=== PATIENT | male | born 1960 | race Caucasian/White ===

== ENCOUNTER 2018-07-20 08:13 | Emergency (ER) | payer SELFPAY ==
[~2018-07-20] VITALS: Ht 182.9 cm; Wt 91.0 kg
[2018-07-20] MEDS ORDERED: FAMOTIDINE 20 MG TABLET ONE (08:46)
[2018-07-20] MEDS ORDERED: METOCLOPRAMIDE 5 MG/ML, 2ML ONE (08:46)
[2018-07-20] MEDS ORDERED: FAMOTIDINE 20 MG/2 ML ONE (08:47)
[2018-07-20] MEDS ORDERED: MORPHINE SULFATE 4 MG/ML, 1ML ONE (08:47)
[2018-07-20] MEDS ORDERED: FAMOTIDINE 20 MG/2 ML IVP ONE (09:00)
[2018-07-20] MEDS ORDERED: MORPHINE SULFATE 4 MG/ML, 1ML IVPush PRN (09:00)
[2018-07-20] MEDS ORDERED: SODIUM CHLORIDE 0.9% 1,000ML IVBOLUS ONE (09:00)
[2018-07-20] MEDS ORDERED: METOCLOPRAMIDE 5 MG/ML, 2ML IVPush ONE (09:00)
[2018-07-20 09:06] LABS: BASOPHILS % (AUTO) 0 % (0-1); EOSINOPHILS # (AUTO) 0.01 x10^3/uL (0-0.4); EOSINOPHILS % (AUTO) 0 % (1-7); LYMPHOCYTES # (AUTO) 0.83 x10^3/uL (1-3.4); LYMPHOCYTES % (AUTO) 8 % (22-44); MD NO; MEAN CORPUSCULAR HEMOGLOBIN 33.9 pg (27.5-34.5); MEAN CORPUSCULAR HGB CONC 34.8 g/dL (33.2-36.2); MEAN CORPUSCULAR VOLUME 97.4 fL (81-97); MEAN PLATELET VOLUME 7.5 fL (7.4-10.4); MONOCYTES # (AUTO) 0.82 x10^3/uL (0.2-0.8); MONOCYTES % (AUTO) 8 % (2-9); NEUTROPHILS # (AUTO) 9.13 x10^3/uL (1.8-6.8); NEUTROPHILS % (AUTO) 85 % (42-75); PLATELET COUNT 340 x10^3/uL (130-400); RED BLOOD COUNT 4.57 x10^6/uL (4.38-5.82); RED CELL DISTRIBUTION WIDTH 13.1 % (9.4-14.8)
[2018-07-20 09:16] LABS: ALBUMIN 3.9 g/dL (3.4-5.0); ANION GAP 10 mmol/L (5-15); CALCIUM 8.5 mg/dL (8.5-10.1); CHLORIDE 96 mmol/L (98-107)
[2018-07-20 09:21] LABS: ALANINE AMINOTRANSFERASE 23 U/L (12-78); ALKALINE PHOSPHATASE 102 U/L (45-117); BILIRUBIN,TOTAL 0.5 mg/dL (0.2-1.0); CREATININE 0.99 mg/dL (0.7-1.3); TOTAL PROTEIN 7.5 g/dL (6.4-8.2)
[2018-07-20] MEDS ORDERED: MAALOX/HYOSCYAMINE/LIDOCAINE 45 ML BTL ONE (09:44)
[2018-07-20] MEDS ORDERED: ONDANSETRON ODT 8 MG ONE (09:58)
[2018-07-20] MEDS ORDERED: MAALOX/HYOSCYAMINE/LIDOCAINE 45 ML BTL PO ONE (10:00)
[2018-07-20] MEDS ORDERED: ONDANSETRON ODT 8 MG PO PRN (10:00)
[2018-07-20] MEDS ORDERED: LORazepam 1MG TABLET ONE (10:04)
[2018-07-20] MEDS ORDERED: LORazepam 1MG TABLET PO ONE (10:30)
[2018-07-20] MEDS ORDERED: CHLORDIAZEPOXIDE 25 MG CAPSULE ONE (10:50)
[2018-07-20 10:52] VITALS: BP 146/90
== END 2018-07-20 12:48 | disposition home or self-care (01) ==
LOC: ED 12:42
DX: K29.00 Acute gastritis without bleeding (principal)
CPT/HCPCS: 36415; 74022; 80053; 80307; 83690; 85025; 86677; 93005; 96361; 96374; 96375; 99285; J2765; J7030; Q0162; S0028